=== PATIENT | female | born 1975 | race Caucasian/White ===

== ENCOUNTER 2019-07-09 11:16 | Inpatient (IN) ==
[2019-07-09] MEDS ORDERED: CEFTAROLINE FOSAMIL ACETATE 600 MG in DEXTROSE 5 % IN WATER 100 ML IV SCH ×6 (12:00→12:15)
[2019-07-09 12:07] LABS: Hematocrit 39.4 % (37.0-47.0); Hemoglobin 13.3 gm/dL (12.5-16.0); Mean Cell Volume 99.2 fl (78-100); Mean Corpuscular Hemoglobin 33.5 pg (27-31); Mean Corpuscular Hgb Conc 33.8 g/dl (32-36); Mean Platelet Volume 8.4 fl (8-12.5); Neutrophil # 9.2 K/mm3 (1.3-6.0); Neutrophil % 80.4 % (42-75.0); Platelet Count 418 K/mm3 (150-450); Red Blood Count 3.97 M/mm3 (4.2-5.4); Red Cell Distribution Width 11.9 % (11.5-14.0); White Blood Count 11.4 K/mm3 (4.0-10.5)
[2019-07-09 12:15] LABS: Albumin * 3.2 gm/dl (3.4-5.0); Anion Gap 13.3 mmol/L (6.8-13.8); BUN/Creatinine Ratio 8.3 (9.0-21.6); Bilirubin, Total 0.2 mg/dL (0.0-1.1); CRP 8.8 mg/dL (0.0-0.9); Ca. Corrected For Albumin 9.7 mg/dL (8.4-10.2); Calcium * 9.4 mg/dL (7.9-10.9); Carbon Dioxide 29.6 mmol/L (24-32.6); Potassium 3.9 mmol/L (3.4-4.6); Total Protein 8.2 gm/dL (6.2-8.2)
[2019-07-09] MEDS: KETOROLAC TROMETHAMINE 30 MG/ML VIAL IV SCH ×3 (12:28→23:41)
[2019-07-09] MEDS: CEFTAROLINE FOSAMIL ACETATE 600 MG in DEXTROSE 5 % IN WATER 100 ML IV SCH ×2 (12:30)
--- NOTE | 2019-07-09 13:10 | PN ---
Leroy Note - Interim Date: 07/09/19 Time: 13:09 Narrative: 07/09/19 13:09 Patient was seen in my office today. No changes since office visit. Will use office note for consultation H&P.
[2019-07-09] MEDS: traMADol HCL 50 MG TABLET PO PRN ×2 (15:35→19:51)
[2019-07-09] MEDS ORDERED: ONDANSETRON HCL/PF 2 MG/ML VIAL IV PRN (19:29)
--- NOTE | 2019-07-09 19:41 | HP ---
Chief Complaint - Chief Complaint Date of Service: 07/09/19 Time of Service: 12:45 Chief Complaint: Left foot pain, swelling, and redness History of Present Illness: Zaynab is a 43 yo female who has been treated for left foot abscess for the past month. She has been on keflex and bactrim DS as outpatient. She has had abscess aspirated by Dr. Villeda and had initially improved but in the last week she has had worsening swelling, redness, and pain. Today when seen in the podiatry clinic it was apparent that the oral antibiotics were not working and the abscess was worsening. She once again and aspiration of abscess in clinic and I was contacted to admit Zaynab for inpatient treatment of abscess due to failed outpatient treatment. Reviewe of prior culture showed no growth but the report from Dr. Villeda is that the fluid was very thick purulence. Uric acid was normal. Medical History (Last Reviewed 07/09/19 @ 12:01 by Amber Hunter RN) Abnormal Pap smear of cervix Onset Date: ~2009 laser 1993, 05/14 colp mild dysplasia Acne Onset Date: Unknown Anxiety Onset Date: Unknown Breast lump Onset Date: 05/17/11 Depression Onset Date: Unknown Esophageal reflux Onset Date: Unknown Thyroid nodule Onset Date: ~2001 thyroidectomy - right side only 2001 Surgical History: Surgical History (Last Reviewed 07/09/19 @ 12:02 by Amber Hunter RN) H/O breast augmentation Onset Date: ~1998 bilateral breast implants H/O breast surgery Onset Date: ~02/2016 nodule removed during breast augmentation replacement surgery History of colposcopy Onset Date: Unknown biopsy of cervix for abnormal pap - History of thyroid surgery Onset Date: ~2001 pt had right thyroid lobectomy; benign thyroid nodule. 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 current occupational exposures/hazards: No Highest education level completed: Associate degree: academi Financial difficulty paying for basics: not very hard Sexually Active: Yes Service: No Tobacco: Smoking Status: Former smoker Alcohol: alcohol intake: current Alcohol type: beer alcohol intake frequency: a few times a month Substance Use: substance use type: does not use Dietary Habits: caffeine: Yes caffeine comment: daily 3-4 cups Type: coffee Exercise: frequency: 3-4 times per week Sharon/Pentecostalism: special sharon needs: No Review Of Systems (GEN) - Review of Systems Generalized/Overall Review: Present: Weakness. Absent: Chills, Fever EENTM: Absent: Blurred Vision, Nose Congestion Respiratory: Absent: Cough, Shortness of Breath Cardiac: Absent: Chest Pain, Palpitations Abdominal: Present: Nausea. Absent: Vomiting Genitourinary: Absent: Burning, Itching Musculoskeletal: Present: Joint Pain. Absent: Back Pain Neurological: Present: Headache Skin: Present: Lesions, Change in Color Endocrine: Present: No Symptoms Reported Immunizations: IMMUNIZATION HX Immunizations Up to Date Yes History of Influenza Vaccine Yes Hx Pneumococcal Vaccination No Allergies/Adverse Reactions: Allergies Allergy/AdvReac Type Severity Reaction Status Date / Time acetaminophen [From Lortab] Allergy Severe hives Verified 07/09/19 12:03 codeine Allergy Severe hives Verified 07/09/19 12:03 [From Tylenol-Codeine] hydrocodone [From Lortab] Allergy Severe hives Verified 07/09/19 12:03 Home Medications: HOME MEDICATIONS ibuprofen 200 mg tablet 800 mg PO Q4H PRN 11/09/17 [Last Taken Unknown] omega 8-sjj-dld-fish oil 60 mg-90 mg-500 mg capsule 1 cap PO DAILY cap 11/09/17 [Last Taken Unknown] alprazolam 0.25 mg tablet 0.25 mg PO BID PRN #60 tab 05/30/19 [Last Taken Unknown] bupropion HCl 150 mg 24 hr tablet, extended release 150 mg PO QAM #30 tab 05/30/19 [Last Taken Unknown] sulfamethoxazole 800 mg-trimethoprim 160 mg tablet 1 tab PO BID 10 Days #20 tab 07/02/19 [Last Taken 07/08/19] Fluconazole 150 mg PO Q3D PRN 07/09/19 [Last Taken Unknown] Multivitamin [One-Daily Multi-Vitamin] 1 ea PO DAILY 07/09/19 [Last Taken Unknown] Exam - Exam Vital Signs: Vital Signs - Last Taken Temp 37.0 C 07/09/19 17:52 Pulse 110 H 07/09/19 17:52 Resp 20 07/09/19 17:52 BP 138/90 H 07/09/19 17:52 Pulse Ox 96 07/09/19 17:52 Constitutional: Present: Alert, Oriented x3, Cooperative ENT Exam: Present: hearing grossly normal Eye Exam: bilateral eye: normal inspection Respiratory: Present: lungs clear, normal breath sounds, no respiratory distress Cardiovascular/Chest: Present: regular rate, rhythm, no murmur Abdomen: Present: Normal bowel sounds, soft, nontender, nondistended Extremity: Present: normal capillary refill, other - Left foot and akle in acewrap. See podiatry consult for further exam details Diagnostic Studies: Abnormal Lab Results 07/09/19 07/09/19 07/09/19 Range/Units 11:57 11:57 11:57 WBC 11.4 H (4.0-10.5) K/mm3 RBC 3.97 L (4.2-5.4) M/mm3 MCH 33.5 H (27-31) pg Immature Gran % (Auto) 0.60 H (0.001-0.429) % Immature Gran # (Auto) 0.07 H (0.000-0.0310) K/mm3 Neutrophils % 80.4 H (42-75.0) % Lymphocytes % 10.6 L (20-51) % Neutrophils # 9.2 H (1.3-6.0) K/mm3 Lymphocytes # 1.20 L (1.5-3.5) k/mm3 ESR 78 H (0-15) mm/hr BUN/Creatinine Ratio 8.3 L (9.0-21.6) C-Reactive Prot, Quant 8.8 H (0.0-0.9) mg/dL Albumin 3.2 L (3.4-5.0) gm/dl Laboratory Results WBC 11.4 K/mm3 (4.0-10.5) H 07/09/19 11:57 RBC 3.97 M/mm3 (4.2-5.4) L 07/09/19 11:57 Hgb 13.3 gm/dL (12.5-16.0) 07/09/19 11:57 Hct 39.4 % (37.0-47.0) 07/09/19 11:57 MCV 99.2 fl (78-100) 07/09/19 11:57 MCH 33.5 pg (27-31) H 07/09/19 11:57 MCHC 33.8 g/dl (32-36) 07/09/19 11:57 RDW 11.9 % (11.5-14.0) 07/09/19 11:57 Plt Count 418 K/mm3 (150-450) 07/09/19 11:57 MPV 8.4 fl (8-12.5) 07/09/19 11:57 Immature Gran % (Auto) 0.60 % (0.001-0.429) H 07/09/19 11:57 Immature Gran # (Auto) 0.07 K/mm3 (0.000-0.0310) H 07/09/19 11:57 Neutrophils % 80.4 % (42-75.0) H 07/09/19 11:57 Lymphocytes % 10.6 % (20-51) L 07/09/19 11:57 Monocytes % 7.7 % (0.0-9) 07/09/19 11:57 Eosinophils % 0.3 % (0.0-3.0) 07/09/19 11:57 Basophils % 0.4 % (0.0-1.0) 07/09/19 11:57 Nucleated RBC % 0.0 k/mm3 (0-1) 07/09/19 11:57 Neutrophils # 9.2 K/mm3 (1.3-6.0) H 07/09/19 11:57 Lymphocytes # 1.20 k/mm3 (1.5-3.5) L 07/09/19 11:57 Monocytes # 0.9 k/mm3 (0.0-1.0) 07/09/19 11:57 Eosinophils # 0.0 k/mm3 (0.0-0.7) 07/09/19 11:57 Absolute Basophils 0.0 k/mm3 (0.0-0.1) 07/09/19 11:57 ESR 78 mm/hr (0-15) H 07/09/19 11:57 Sodium 139 mmol/L (132-142) 07/09/19 11:57 Plasma Sodium 139 mmol/L (130-142) 07/09/19 11:57 Potassium 3.9 mmol/L (3.4-4.6) D 07/09/19 11:57 Chloride 100 mmol/L (97-106) 07/09/19 11:57 Carbon Dioxide 29.6 mmol/L (24-32.6) 07/09/19 11:57 Anion Gap 13.3 mmol/L (6.8-13.8) 07/09/19 11:57 BUN 5 mg/dL (3-23) D 07/09/19 11:57 Creatinine 0.60 mg/dL (0.4-1.4) 07/09/19 11:57 Est GFR (Non-Af Amer) 115 mL/min (60-130) 07/09/19 11:57 BUN/Creatinine Ratio 8.3 (9.0-21.6) L 07/09/19 11:57 Random Glucose 106 mg/dL (70-110) 07/09/19 11:57 Calcium 9.4 mg/dL (7.9-10.9) 07/09/19 11:57 Calcium Adj for Albumin 9.7 mg/dL (8.4-10.2) 07/09/19 11:57 Total Bilirubin 0.2 mg/dL (0.0-1.1) 07/09/19 11:57 AST 23 U/L (0-48) 07/09/19 11:57 ALT 30 U/L (19-67) 07/09/19 11:57 Alkaline Phosphatase 119 U/L (50-170) 07/09/19 11:57 C-Reactive Prot, Quant 8.8 mg/dL (0.0-0.9) H 07/09/19 11:57 Total Protein 8.2 gm/dL (6.2-8.2) 07/09/19 11:57 Albumin 3.2 gm/dl (3.4-5.0) L 07/09/19 11:57 Assessment/Plan - Narrative Narrative: Zaynab has failed outpatient treatment having been on keflex and bactrim DS and currently symptoms are worsening. No growth from prior culture to direct antibiotic treatment. Will treat with Teflaro which covers gram positive and ne gative with special coverage for MRSA. Will consult podiatry with surgical management. Will start toradol for pain and inflammation coverage. Will admit to inpatient. Expect >2 midnights to see improvement and may need further surgical management. Discussed with podiatry who will be getting MRI to look for further abscess beyond what was drained in clinic. - Assessment/Plan (1) Foot abscess, left Problem: Acute
[2019-07-09] MEDS: SACCHAROMYCES BOULARDII 250 MG CAPSULE PO SCH (21:45)
[2019-07-10] MEDS: CEFTAROLINE FOSAMIL ACETATE 600 MG in DEXTROSE 5 % IN WATER 100 ML IV SCH ×6 (00:10→23:58)
[2019-07-10] MEDS: traMADol HCL 50 MG TABLET PO PRN ×4 (01:53→22:08)
[2019-07-10] MEDS: KETOROLAC TROMETHAMINE 30 MG/ML VIAL IV SCH ×4 (05:36→23:53)
[2019-07-10 06:14] LABS: Hematocrit 37.1 % (37.0-47.0); Hemoglobin 12.7 gm/dL (12.5-16.0); Mean Cell Volume 98.7 fl (78-100); Mean Corpuscular Hemoglobin 33.8 pg (27-31); Mean Corpuscular Hgb Conc 34.2 g/dl (32-36); Mean Platelet Volume 8.4 fl (8-12.5); Neutrophil # 8.9 K/mm3 (1.3-6.0); Neutrophil % 80.2 % (42-75.0); Platelet Count 378 K/mm3 (150-450); Red Blood Count 3.76 M/mm3 (4.2-5.4); Red Cell Distribution Width 11.9 % (11.5-14.0); White Blood Count 11.1 K/mm3 (4.0-10.5)
[2019-07-10 06:34] LABS: Albumin * 2.7 gm/dl (3.4-5.0); BUN/Creatinine Ratio 9.2 (9.0-21.6); Bilirubin, Total 0.3 mg/dL (0.0-1.1); CRP 6.3 mg/dL (0.0-0.9); Ca. Corrected For Albumin 9.4 mg/dL (8.4-10.2); Calcium * 8.7 mg/dL (7.9-10.9); Total Protein 7.3 gm/dL (6.2-8.2)
[2019-07-10] MEDS ORDERED: MORPHINE SULFATE 4 MG/ML SYRG IV ONE (10:16)
[2019-07-10] MEDS ORDERED: PROMETHAZINE HCL 25 MG TABLET PO ONE (10:17)
[2019-07-10] MEDS: SACCHAROMYCES BOULARDII 250 MG CAPSULE PO SCH ×2 (10:40→20:28)
[2019-07-10] MEDS ORDERED: traMADol HCL 50 MG TABLET PO PRN ×2 (13:30→21:00)
[2019-07-10] MEDS ORDERED: ALPRAZolam 0.25 MG TABLET PO PRN (16:36)
--- NOTE | 2019-07-10 17:29 | PN ---
Subjective - Date and Time Seen Date: 07/10/19 Time: 17:00 Subjective Narrative: Patient seen at bedside resting. States that her pain has improved a little since yesterday. She had MRI done this morning. She continues on IV Teflaro per Dr. Engle without complication. She denies any nausea, vomiting, fevers, or chills. Her dressing remains clean and dry with no strike-through drainage following I&D yesterday. States that her pain is being well controlled with current pain medications. Objective - Review of Systems Generalized/Overall Review: Denies: Chills, Fever, Fatigue Respiratory: Denies: Shortness of Breath Cardiac: Reports: Edema Abdominal: Denies: Nausea, Vomiting, Diarrhea Musculoskeletal Complaints: Reports: Other - left ankle pain Skin: Reports: Other - erythema left ankle; I&D sites medial and lateral left ankle - Vitals Vitals: Last Vital Signs Temp 36.7 C 07/10/19 15:28 Pulse 106 H 07/10/19 15:28 Resp 18 07/10/19 15:28 BP 134/83 07/10/19 15:28 Pulse Ox 98 07/10/19 15:28 - Abnormal Lab Findings Abnormal Lab Findings: Abnormal Lab Results 07/10/19 07/10/19 Range/Units 06:10 06:10 WBC 11.1 H (4.0-10.5) K/mm3 RBC 3.76 L (4.2-5.4) M/mm3 MCH 33.8 H (27-31) pg Immature Gran # (Auto) 0.04 H (0.000-0.0310) K/mm3 Neutrophils % 80.2 H (42-75.0) % Lymphocytes % 9.3 L (20-51) % Monocytes % 9.3 H (0.0-9) % Neutrophils # 8.9 H (1.3-6.0) K/mm3 Lymphocytes # 1.03 L (1.5-3.5) k/mm3 C-Reactive Prot, Quant 6.3 H (0.0-0.9) mg/dL Albumin 2.7 L (3.4-5.0) gm/dl - Exam Exam Narrative: MRI reviewed. Agree with report. Cannot rule out osteomyelitis given current infection in the ankle. No definitive abscess noted, but there are areas of fluid present in the tissues located at I&D sites. Constitutional: Present: Alert, Oriented x3, Cooperative Extremity: Present: pedal edema, other - left ankle pain Skin Exam: Present: other - Medial left ankle remains erythematous, however not as intense as yesterday prior to I&D of abscess. Lateral ankle erythema continues to improve and is near resolved today. Both I&D sites medially and laterally remain open. Lateral incision with serous drainage only. Medial incision still with minimal purulence. Skin remains warm to touch in comparison to surrounding skin. Appearance: Present: appropriate appearance Eye contact: Present: cooperative Thoughts: Present: normal thought pattern Assessment/Plan - Problems/Diagnosis (1) Foot abscess, left Problem: Acute Narrative: MRI reviewed with patient today. While I am not completely convinced she has developed bone infection given MRI findings, I cannot rule this out completely with localized infection present. Will treat aggressively as though she has bone infection, which will include minimum 6 weeks of antibiotics. I would like her to see Infectious Disease as well, and this referral has already been placed through my office. Will contact their office tomorrow to see about scheduling. Advised that there are some good oral antibiotics that can treat bone infection, or can continue with IV antibiotics, however she would need to come to the hospital at least twice daily for infusions. Will discuss more with Dr. Engle and determine the best plan for her until she is able to see Dr. Chisholm with Infectious Disease. Her pain has improved and redness is not as intense today. WBC and CRP have also improved. Will plan for at least one more day of current IV antibiotics. Still awaiting culture results, however preliminary results showing no growth which will make selection of appropriate antibiotic a little more difficult. This is also discussed with patient and she states understanding. Her dressings are changed today. Aquacel Ag, dry gauze, frantz, and JAVIER bandage are applied. This is to be kept clean and dry. I will continue to change her dressings.
[2019-07-10] MEDS ORDERED: traMADol HCL 50 MG TABLET PO ONE (19:15)
--- NOTE | 2019-07-10 21:02 | PN ---
Subjective - Date and Time Seen Date: 07/10/19 Time: 10:04 Subjective Narrative: Patient resting comfortably in the room currently speaking with [employer] about possible sedation for MRI of her left foot to look for possible osteomyelitis from ongoing foot infection. Allergy was came to the agreement that it would likely be better to treat her pain instead of sedating her which is the plan. Patient does endorse some left lower extremity pain following that I&D performed by Dr. Villeda yesterday. No breakthrough drainage with her dressings, they are dry and intact. Vital signs are stable she is afebrile. Pain not currently being well controlled at this time. Her vital signs are stable (aside from mildl tachycardia) and she is afebrile. Objective - Review of Systems Generalized/Overall Review: Denies: Weakness, Chills, Fever EENTM: Reports: No Symptoms Reported Respiratory: Reports: No Symptoms Reported Cardiac: Reports: No Symptoms Reported Abdominal: Reports: No Symptoms Reported Musculoskeletal Complaints: Reports: Joint Pain - Left ankle pain Skin: Reports: Other - No drainage seen on bandage - Vitals Vitals: Last Vital Signs Temp 36.7 C 07/10/19 15:28 Pulse 106 H 07/10/19 15:28 Resp 18 07/10/19 15:28 BP 134/83 07/10/19 15:28 Pulse Ox 98 07/10/19 15:28 - Abnormal Lab Findings Abnormal Lab Findings: Abnormal Lab Results 07/10/19 07/10/19 Range/Units 06:10 06:10 WBC 11.1 H (4.0-10.5) K/mm3 RBC 3.76 L (4.2-5.4) M/mm3 MCH 33.8 H (27-31) pg Immature Gran # (Auto) 0.04 H (0.000-0.0310) K/mm3 Neutrophils % 80.2 H (42-75.0) % Lymphocytes % 9.3 L (20-51) % Monocytes % 9.3 H (0.0-9) % Neutrophils # 8.9 H (1.3-6.0) K/mm3 Lymphocytes # 1.03 L (1.5-3.5) k/mm3 C-Reactive Prot, Quant 6.3 H (0.0-0.9) mg/dL Albumin 2.7 L (3.4-5.0) gm/dl - Exam Constitutional: Present: Alert, Oriented x3, Mild distress - Ankle pain ENT Exam: Present: hearing grossly normal Neck: Present: trachea midline. Absent: stiff neck Respiratory: Present: no accessory muscle use. Absent: respiratory distress Cardiovascular/Chest: Present: no murmur, tachycardia Extremity: Present: other - Dressing is clean, dry and intact to left ankle. Absent: swelling - Left lower extremity Appearance: Present: appropriate appearance, appropriate insight Thoughts: Present: normal thought pattern, normal mood /affect Assessment/Plan Plan Narrative: MRI to be completed today. Patient received some morphine and Phenergan prior to the imaging to make her comfortable and allow her to sit throughout. We will increase her tramadol from 50 mg to 200 mg every 4 to 6 hours as needed to help with her pain. Will restart home medications. Will wait to see what the MRI shows to make sure there is no osteomyelitis, if so then will become a surgical case with Dr. Villeda but otherwise she likely will be treated with long course of IV antibiotics. Chronic medications restarted. Patient agreement treatment plan, nurse to call with questions or concerns. - Problems/Diagnosis (1) Foot abscess, left Problem: Acute
[2019-07-10] MEDS: METOPROLOL TARTRATE 25 MG TABLET PO SCH (22:12)
[2019-07-11] MEDS: traMADol HCL 50 MG TABLET PO PRN ×8 (03:06→21:33)
[2019-07-11] MEDS: KETOROLAC TROMETHAMINE 30 MG/ML VIAL IV SCH (05:41)
[2019-07-11] MEDS: SACCHAROMYCES BOULARDII 250 MG CAPSULE PO SCH ×2 (08:11→20:05)
[2019-07-11] MEDS: ALPRAZolam 0.25 MG TABLET PO PRN ×2 (08:11→17:17)
[2019-07-11] MEDS: METOPROLOL TARTRATE 25 MG TABLET PO SCH ×2 (08:12→20:06)
[2019-07-11] MEDS: buPROPion HCL 150 MG TAB.SR.24H PO SCH (08:13)
--- NOTE | 2019-07-11 11:02 | PN ---
Subjective - Date and Time Seen Date: 07/11/19 Time: 10:30 Subjective Narrative: Patient seen at bedside resting. States that her pain has improved quite a bit since yesterday, and is now able to go longer periods of time between doses of pain medication. She had MRI done yesterday morning, and results have been reviewed with her. She continues on IV Teflaro per Dr. Engle without complication. She denies any nausea, vomiting, fevers, or chills. Her dressing remains clean and dry with no strike-through drainage. States that her pain is being well controlled with current pain medications. She is also applying ice to the ankle which also helps reduce her pain. States she has most pain when she is trying to bear weight to go to the restroom. She does have both crutches as well as a walker at home she can use to keep weight off of her foot. Objective - Review of Systems Generalized/Overall Review: Denies: Weakness, Chills, Fever Abdominal: Denies: Nausea, Vomiting, Diarrhea Musculoskeletal Complaints: Reports: Other - left ankle pain Skin: Reports: Other - Incisions medial and lateral left ankle following I&D abscess; erythema left ankle - improving - Vitals Vitals: Last Vital Signs Temp 36.5 C 07/11/19 10:46 Pulse 87 07/11/19 10:46 Resp 13 07/11/19 10:46 BP 137/78 07/11/19 10:46 Pulse Ox 100 07/11/19 10:46 - Exam Constitutional: Present: Alert, Oriented x3, Cooperative Extremity: Present: pedal edema - left ankle - improving Skin Exam: Present: other - Medial left ankle remains erythematous, however this has improved again since yesterday. Lateral ankle erythema continues to improve and is near resolved today. Both I&D sites medially and laterally remain open. Lateral incision with serous drainage only. Medial incision still with minimal purulence. Skin remains warm to touch in comparison to surrounding skin. Appearance: Present: appropriate appearance Eye contact: Present: cooperative Thoughts: Present: normal thought pattern Assessment/Plan - Problems/Diagnosis (1) Foot abscess, left Problem: Acute Narrative: Discussed exam findings with patient. She still has erythema about the medial ankle, and while it has improved since yesterday, I do not feel she is ready for discharge today. Will continue to treat aggressively as though she has bone infection, which will include minimum 6 weeks of antibiotics. Will contact Infectious Disease today to set up appointment for her following discharge. Discussed use of oral antibiotics to treat bone infection, and have discussed this with Dr. Engle as well. Advised we can start on oral antibiotics, however Dr. Chisholm may advise return to IV antibiotics, and she is ok with this plan if needed. Discussed goals of treatment, and our goal is to treat this without need for surgical care in the OR, however explained that this may become necessary to do a deeper I&D and more aggressive debridement if she does not respond to medical management. She understands this. Her pain continues to improve. Will continue with current pain medications and continue with ice to the ankle. Will repeat a CBC, CMP, and CRP today. Will plan for at least one more day of current IV antibiotics. Culture has returned and again showing no growth which will make selection of appropriate antibiotic a little more difficult. This is also discussed with patient and she states understanding. Her dressings are changed today. Aquacel Ag, dry gauze, frantz, and JAVIER bandage are applied. This is to be kept clean and dry. I will continue to change her dressings.
[2019-07-11 11:47] LABS: Hematocrit 38.5 % (37.0-47.0); Hemoglobin 12.6 gm/dL (12.5-16.0); Mean Corpuscular Hemoglobin 33.1 pg (27-31); Mean Corpuscular Hgb Conc 32.7 g/dl (32-36); Mean Platelet Volume 8.5 fl (8-12.5); Neutrophil # 6.3 K/mm3 (1.3-6.0); Neutrophil % 75.6 % (42-75.0); Platelet Count 425 K/mm3 (150-450); Red Blood Count 3.81 M/mm3 (4.2-5.4); Red Cell Distribution Width 11.9 % (11.5-14.0); White Blood Count 8.3 K/mm3 (4.0-10.5)
[2019-07-11 11:59] LABS: Albumin * 2.9 gm/dl (3.4-5.0); BUN/Creatinine Ratio 10.3 (9.0-21.6); Bilirubin, Total 0.2 mg/dL (0.0-1.1); Ca. Corrected For Albumin 9.4 mg/dL (8.4-10.2); Calcium * 8.8 mg/dL (7.9-10.9); Carbon Dioxide 32.9 mmol/L (24-32.6); Potassium 3.9 mmol/L (3.4-4.6); Total Protein 7.7 gm/dL (6.2-8.2)
[2019-07-11] MEDS: CEFTAROLINE FOSAMIL ACETATE 600 MG in DEXTROSE 5 % IN WATER 100 ML IV SCH ×2 (12:19)
--- NOTE | 2019-07-11 23:01 | PN ---
Subjective - Date and Time Seen Date: 07/11/19 Time: 11:00 Subjective Narrative: Zaynab reports pain is better. Dressing changed by Dr. Villeda today and foot looked better. No fever, chills, nausea, or vomiting. Objective - Vitals Vitals: Last Vital Signs Temp 37.1 C 07/11/19 18:44 Pulse 101 H 07/11/19 18:44 Resp 17 07/11/19 18:44 BP 146/77 H 07/11/19 18:44 Pulse Ox 99 07/11/19 18:44 - Abnormal Lab Findings Abnormal Lab Findings: Abnormal Lab Results 07/11/19 07/11/19 07/11/19 Range/Units 11:40 11:40 11:40 RBC 3.81 L (4.2-5.4) M/mm3 MCV 101.0 H (78-100) fl MCH 33.1 H (27-31) pg Neutrophils % 75.6 H (42-75.0) % Lymphocytes % 13.2 L (20-51) % Monocytes % 9.9 H (0.0-9) % Neutrophils # 6.3 H (1.3-6.0) K/mm3 Lymphocytes # 1.09 L (1.5-3.5) k/mm3 ESR 72 H (0-15) mm/hr Carbon Dioxide 32.9 H (24-32.6) mmol/L Albumin 2.9 L (3.4-5.0) gm/dl - Exam Constitutional: Present: Alert, Oriented x3, Cooperative ENT Exam: Present: hearing grossly normal Respiratory: Present: lungs clear, normal breath sounds Cardiovascular/Chest: Present: regular rate, rhythm, no murmur Abdomen: Present: Normal bowel sounds, soft, nontender, nondistended Extremity: Present: other - Left ankle with acewrap (see podiatry note for further detail on left foot) Assessment/Plan Plan Narrative: Clinically improved. MRI shows suspicion of osteomyelitis. Continue Teflaro. If she continues to improve plan to discharge to home tomorrow on cefdinir and doxycycline. Dr. Villeda will recheck foot again tomorrow and if improved will discharge to home on 6 weeks of antibiotics. - Problems/Diagnosis (1) Foot abscess, left Problem: Acute (2) Osteomyelitis of foot, left, acute Problem: Suspected
[2019-07-12] MEDS: traMADol HCL 50 MG TABLET PO PRN ×6 (00:20→12:50)
[2019-07-12] MEDS: CEFTAROLINE FOSAMIL ACETATE 600 MG in DEXTROSE 5 % IN WATER 100 ML IV SCH ×4 (00:21→11:39)
[2019-07-12] MEDS: ALPRAZolam 0.25 MG TABLET PO PRN (05:32)
[2019-07-12] MEDS ORDERED: traMADol HCL 50 MG TABLET PO PRN ×2 (08:27→08:30)
[2019-07-12] MEDS: SACCHAROMYCES BOULARDII 250 MG CAPSULE PO SCH (09:12)
[2019-07-12] MEDS: buPROPion HCL 150 MG TAB.SR.24H PO SCH (09:12)
--- NOTE | 2019-07-12 09:50 | PN ---
Subjective - Date and Time Seen Date: 07/12/19 Subjective Narrative: Patient seen at bedside resting. She continues on IV Teflaro per Dr. Engle without complication. She denies any nausea, vomiting, fevers, or chills. Her dressing remains clean and dry with no strike-through drainage. States that her pain is being well controlled with current pain medications. She is also applying ice to the ankle which also helps reduce her pain. States she has most pain when she is trying to bear weight to go to the restroom. She does have both crutches as well as a walker at home she can use to keep weight off of her foot, and is using a walker in her room. She feels she is ready for discharge home, but does have some hesitations with changing her own dressings. Objective - Review of Systems Generalized/Overall Review: Denies: Chills, Fever Respiratory: Denies: Shortness of Breath Cardiac: Reports: Edema - pedal Musculoskeletal Complaints: Reports: Other - left ankle pain Skin: Reports: Other - erythema left ankle; incision x 2 left ankle following I&D - Vitals Vitals: Last Vital Signs Temp 36.9 C 07/12/19 06:00 Pulse 99 07/12/19 06:00 Resp 16 07/12/19 06:00 BP 129/79 07/12/19 06:00 Pulse Ox 99 07/12/19 06:00 - Abnormal Lab Findings Abnormal Lab Findings: Abnormal Lab Results 07/11/19 07/11/19 07/11/19 Range/Units 11:40 11:40 11:40 RBC 3.81 L (4.2-5.4) M/mm3 MCV 101.0 H (78-100) fl MCH 33.1 H (27-31) pg Neutrophils % 75.6 H (42-75.0) % Lymphocytes % 13.2 L (20-51) % Monocytes % 9.9 H (0.0-9) % Neutrophils # 6.3 H (1.3-6.0) K/mm3 Lymphocytes # 1.09 L (1.5-3.5) k/mm3 ESR 72 H (0-15) mm/hr Carbon Dioxide 32.9 H (24-32.6) mmol/L Albumin 2.9 L (3.4-5.0) gm/dl - Exam Constitutional: Present: Alert, Oriented x3, Cooperative Extremity: Present: pedal edema - left ankle Skin Exam: Present: other - Medial left ankle remains erythematous, however this has improved again since yesterday. Swelling is also improving and can now see skin lines about the medial aspect of the ankle. Lateral ankle erythema and swelling has resolved. Both I&D sites medially and laterally remain open. Lateral incision with serous drainage only. Medial incision still with minimal purulence. Skin at the medial ankle remains warm to touch in comparison to surrounding skin. Appearance: Present: appropriate appearance Eye contact: Present: cooperative Thoughts: Present: normal thought pattern Assessment/Plan - Problems/Diagnosis (1) Foot abscess, left Problem: Acute Narrative: Discussed exam findings with patient. She still has erythema about the medial ankle, but it continues to improve. Swelling reduced, now with visible skin lines. Will continue to treat aggressively as though she has bone infection, which will include minimum 6 weeks of antibiotics. She has an appointment scheduled with Dr. Chisholm at [facility] on Tuesday at 9:30, and appointment information has been given to the patient. Discussed use of oral antibiotics to treat bone infection, and have discussed this with Dr. Engle as well. Will plan to start on oral antibiotics at discharge, however Dr. Chisholm may advise return to IV antibiotics, and she is ok with this plan if needed. Again discussed goals of treatment, and our goal remains to treat this without need for surgical care in the OR, however again explained that this may become necessary to do a deeper I&D and more aggressive debridement if she does not respond to medical management. She understands this. Her pain continues to improve. Will continue with current pain medications and continue with ice to the ankle. She may be discharged home today. Will plan for at least one more dose of current IV antibiotics prior to discharge. Culture has returned and again showing no growth which has made selection of appropriate antibiotic a little more difficult. This is also discussed with patient and she states understanding. Her dressings are changed today. Aquacel Ag, dry gauze, frantz, and JAVIER bandage are applied. This is to be kept clean and dry. I will continue to change her dressings and will plan to meet her in the [place] here at the hospital daily through the weekend to change her dressings for her, and to continue close monitoring of her infection after placement on oral antibiotics. She is scheduled for follow up in my office on Tuesday at 8:30 am.
[2019-07-12] MEDS ORDERED: ACETAMINOPHEN 500 MG TABLET PO ONE (10:19)
--- NOTE | 2019-07-12 10:50 | DS ---
(1) Foot abscess, left Problem: Acute (2) Osteomyelitis of foot, left, acute Problem: Suspected Date of Discharge:: 07/12/19 Hospital Course: Zaynab is a 43 yo female who was admitted for failed outpatient treatment of left foot abscess. Podiatry was consulted and Dr. Villeda drained her abscess. Fluid was purulent and sent for culture. As with her last culture nothing grew but all samples have been thick purulence. She was started on Teflaro and her pain, swelling, and erythema improved. MRI was obtained which showed some suspicion of osteomyelitis. Dr. Villeda changed her dressing daily and noted improvement. With improved pain control, swelling, and inflammation she will be discharged to home. Will cover for osteomyelitis although not entirely convinced that the infection is in the bone. Will therefore treat for 6 weeks with oral antibiotics of cefdinir and doxycycline. She should take probiotics daily. She will follow up with Dr. Villeda for dressing changes. Procedures Performed: see notes below List Procedures: Drainage of abscess Results and Findings: Lab Pending Results 07/09/19 11:57: WBC 11.4 H, RBC 3.97 L, Hgb 13.3, Hct 39.4, MCV 99.2, MCH 33.5 H, MCHC 33.8, RDW 11.9, Plt Count 418, MPV 8.4, Immature Gran % (Auto) 0.60 H, Immature Gran # (Auto) 0.07 H, Neutrophils % 80.4 H, Lymphocytes % 10.6 L, Monocytes % 7.7, Eosinophils % 0.3, Basophils % 0.4, Nucleated RBC % 0.0, Neutrophils # 9.2 H, Lymphocytes # 1.20 L, Monocytes # 0.9, Eosinophils # 0.0, Absolute Basophils 0.0 07/09/19 11:57: ESR 78 H 07/09/19 11:57: Sodium 139, Plasma Sodium 139, Potassium 3.9 D, Chloride 100, Carbon Dioxide 29.6, Anion Gap 13.3, BUN 5 D, Creatinine 0.60, Est GFR (Non-Af Amer) 115, BUN/Creatinine Ratio 8.3 L, Random Glucose 106, Calcium 9.4, Calcium Adj for Albumin 9.7, Total Bilirubin 0.2, AST 23, ALT 30, Alkaline Phosphatase 119, C-Reactive Prot, Quant 8.8 H, Total Protein 8.2, Albumin 3.2 L 07/10/19 06:10: WBC 11.1 H, RBC 3.76 L, Hgb 12.7, Hct 37.1, MCV 98.7, MCH 33.8 H, MCHC 34.2, RDW 11.9, Plt Count 378, MPV 8.4, Immature Gran % (Auto) 0.40, Immature Gran # (Auto) 0.04 H, Neutrophils % 80.2 H, Lymphocytes % 9.3 L, Monocytes % 9.3 H, Eosinophils % 0.5, Basophils % 0.3, Nucleated RBC % 0.0, Neutrophils # 8.9 H, Lymphocytes # 1.03 L, Monocytes # 1.0, Eosinophils # 0.1, Absolute Basophils 0.0 07/10/19 06:10: Sodium 137, Plasma Sodium 137, Potassium 4.0, Chloride 99, Carbon Dioxide 29.0, Anion Gap 13.0, BUN 6, Creatinine 0.65, Est GFR (Non-Af Amer) 105, BUN/Creatinine Ratio 9.2, Random Glucose 99, Calcium 8.7, Calcium Adj for Albumin 9.4, Total Bilirubin 0.3, AST 17, ALT 29, Alkaline Phosphatase 113, C-Reactive Prot, Quant 6.3 H, Total Protein 7.3, Albumin 2.7 L 07/11/19 11:40: WBC 8.3 D, RBC 3.81 L, Hgb 12.6, Hct 38.5, MCV 101.0 H, MCH 33.1 H, MCHC 32.7, RDW 11.9, Plt Count 425, MPV 8.5, Immature Gran % (Auto) 0.40, Immature Gran # (Auto) 0.03, Neutrophils % 75.6 H, Lymphocytes % 13.2 L, Monocytes % 9.9 H, Eosinophils % 0.5, Basophils % 0.4, Nucleated RBC % 0.0, Neutrophils # 6.3 H, Lymphocytes # 1.09 L, Monocytes # 0.8, Eosinophils # 0.0, Absolute Basophils 0.0 07/11/19 11:40: ESR 72 H 07/11/19 11:40: Sodium 137, Plasma Sodium 137, Potassium 3.9, Chloride 98, Carbon Dioxide 32.9 H, Anion Gap 10.0, BUN 7, Creatinine 0.68, Est GFR (Non-Af Amer) 99, BUN/Creatinine Ratio 10.3, Random Glucose 84, Calcium 8.8, Calcium Adj for Albumin 9.4, Total Bilirubin 0.2, AST 27, ALT 37, Alkaline Phosphatase 116, Total Protein 7.7, Albumin 2.9 L Discharge Location: Home Disposition: Home self-care Condition: Good Discharge Activity: Activity as tolerated Discharge Diet: General/regular food Referrals: Cortney Villeda DPM [Staff Physician] - (Will see over the weekend in the [place]) Problem Oriented Discharge Instructions to Patient/Family: Abscess, [id number] Additional Patient Instructions (free text): Follow up with on 07-17-2019 at 8:30am. Come in on 07-13-2019 for a Dressing Change in the [place] at 9:30am. Prescriptions (Any new or edited meds): Doxycycline Monohydrate 100 mg PO BID #84 tab Transmission Status: Pending to [facility] #[id number] Saccharomyces Boulardii [Florastor] 250 mg PO BID #60 cap Transmission Status: Pending to [facility] #[id number] Fluconazole 150 mg PO Q3D PRN #20 PRN Reason: yeast infection Cefdinir [Omnicef] 300 mg PO BID #84 cap Transmission Status: Pending to [facility] #[id number] traMADol HCL [Ultram] 50 mg PO Q3H PRN #120 tab PRN Reason: Pain Transmission Status: Received by [facility] #[id number] Complete Home Medications List: Complete Home Medication List: ibuprofen 200 mg tablet 800 mg PO Q4H PRN 11/09/17 omega [id number]-[id number]-fish oil 60 mg-90 mg-500 mg capsule 1 cap PO DAILY cap 11/09/17 alprazolam 0.25 mg tablet 0.25 mg PO BID PRN #60 tab 05/30/19 bupropion HCl 150 mg 24 hr tablet, extended release 150 mg PO QAM #30 tab 05/30/19 Multivitamin [One-Daily Multi-Vitamin] 1 ea PO DAILY 07/09/19 Cefdinir [Omnicef] 300 mg PO BID #84 cap 07/12/19 Doxycycline Monohydrate 100 mg PO BID #84 tab 07/12/19 Fluconazole 150 mg PO Q3D PRN #20 07/12/19 Saccharomyces Boulardii [Florastor] 250 mg PO BID #60 cap 07/12/19 traMADol HCL [Ultram] 50 mg PO Q3H PRN #120 tab 07/12/19
[2019-07-12 12:59] VITALS: BP 135/79
== END 2019-07-12 13:20 | disposition home or self-care (01) | DRG 540 ==
LOC: MS → OBSVTOIN 11:16
PROVIDERS: ADMIT Family Medicine; ATTEND Family Medicine
CPT/HCPCS: 36415; 73723; 80053; 85025; 85652; 86140; 87070; 87081; A9576